=== PATIENT | male | born 1995 | race Caucasian/White ===

== ENCOUNTER 2020-01-13 22:21 | Emergency (ER) | payer OTHER ==
[~2020-01-13] VITALS: Ht 185.4 cm; Wt 77.2 kg
[2020-01-13 22:25] VITALS: BP 131/71
--- NOTE | 2020-01-13 22:56 | PHYS DOC ---
General Adult EDM: Chief Complaint: WRIST PAIN HPI: HPI: Patient is a 24-year-old male who presented to ER today for evaluation of left wrist pain. Patient said about 4 days ago he was running and tripped fell down the sidewalk, hit his left wrist on ledge of the sidewalk. Patient was doing okay then, however today when he was using his left hand to lift something at work, aggravate the pain in his left wrist. Patient denied any other injury, no previous injury to his left wrist. Review of Systems: Review of Systems: Constitutional: Denies fever or chills Eyes: Denies change in visual acuity HENT: Denies nasal congestion or sore throat Respiratory: Denies cough or shortness of breath Cardiovascular: Denies chest pain or edema GI: Denies abdominal pain, nausea, vomiting, bloody stools or diarrhea : Denies dysuria Musculoskeletal: Denies back pain , positive for pain in left wrist. Integument: Denies rash Neurologic: Denies headache, focal weakness or sensory changes Endocrine: Denies polyuria or polydipsia Lymphatic: Denies swollen glands Psychiatric: Denies depression or anxiety Heart Score: Risk Factors: Risk Factors: DM, Current or recent (<one month) smoker, HTN, HLP, family history of CAD, obesity. Risk Scores: Score 0 - 3: 2.5% MACE over next 6 weeks - Discharge Home Score 4 - 6: 20.3% MACE over next 6 weeks - Admit for Clinical Observation Score 7 - 10: 72.7% MACE over next 6 weeks - Early Invasive Strategies Physical Exam: PE: Constitutional: Well developed, well nourished, no acute distress, non-toxic appearance. [] HENT: Normocephalic, atraumatic, bilateral external ears normal, oropharynx moist, no oral exudates, nose normal. [] Eyes: PERRLA, EOMI, conjunctiva normal, no discharge. [] Neck: Normal range of motion, no tenderness, supple, no stridor. [] Cardiovascular:Heart rate regular rhythm, no murmur [] Lungs & Thorax: Bilateral breath sounds clear to auscultation [] Abdomen: Bowel sounds normal, soft, no tenderness, no masses, no pulsatile masses. [] Skin: Warm, dry, no erythema, no rash. [] Back: No tenderness, no CVA tenderness. [] Extremities: No tenderness, no cyanosis, no clubbing, ROM intact, no edema. There is no swelling or deformity of left wrist, there is tenderness with range of motion of left wrist, there is snuffbox tenderness. Neurologic: Alert and oriented X 3, normal motor function, normal sensory function, no focal deficits noted. [] Psychologic: Affect normal, judgement normal, mood normal. [] EKG: EKG: [] Radiology/Procedures: Radiology/Procedures: [][address] [address] IMAGING REPORT Signed PATIENT: DANIELE AU ACCOUNT: [id number] : 1995 LOCATION: ER AGE: 24 SEX: M EXAM STATUS: REG ER ORD. PHYSICIAN: OKSANA KEY DO REASON: FELL 3 DAYS AGO, LEFT SIDE WRIST PAIN PROCEDURE: WRIST 3V LEFT 3 view left wrist HISTORY: Fell 3 days ago AP lateral oblique views The visualized osseous structures appear normal. IMPRESSION: No acute findings. Electronically signed by: Georgie Walsh III, MD (01/13/2020 11:09 PM) [id number] DICTATED AND SIGNED BY: GEORGIE WALSH III, MD DATE: 01/13/202308 CC: PCP,UNKNOWN; OKSANA KEY DO ~ Course & Med Decision Making: Course & Med Decision Making Pertinent Labs and Imaging studies reviewed. (See chart for details) Patient is a 24-year-old man who was evaluated in the ED due to left wrist injury, x-ray did not show any acute fracture or dislocation. Patient had a Velcro wrist splint applied to his left wrist, he will be discharged home. Patient will need to follow-up with family doctor in 10 days to have left wrist re-x-rayed. Patient is amenable to plan of care Ling Disclaimer: Ling Disclaimer: This electronic medical record was generated, in whole or in part, using a voice recognition dictation system. Departure Departure: Impression: Primary Impression: Sprain of left wrist Disposition: 01 HOME/RESIDENCE PRIOR TO ADM Condition: STABLE Referrals: PCP,UNKNOWN (PCP) follow up with your doctor in 10 days to have your left wrist rexray. Patient Instructions: Wrist Sprain with [facility] OKSANA KEY DO January 13, 2020 22:56
--- NOTE | 2020-01-13 23:12 | RAD ---
3 view left wrist HISTORY: Fell 3 days ago AP lateral oblique views The visualized osseous structures appear normal. IMPRESSION: No acute findings. Electronically signed by: Graeme Gutierres III, MD (01/13/2020 11:09 PM) [id number]
== END 2020-01-13 23:30 | disposition home or self-care (01) ==
LOC: ER 22:21
DX: S63.502A Unspecified sprain of left wrist, initial encounter (principal); W01.0XXA Fall on same level from slipping, tripping and stumbling without subsequent striking against object, initial encounter; Y93.02 Activity, running; Y92.89 Other specified places as the place of occurrence of the external cause; Y99.8 Other external cause status
CPT/HCPCS: 29125; 73110; 99283

== ENCOUNTER 2020-11-02 21:05 | Emergency (ER) | payer OTHER ==
[~2020-11-02] VITALS: Ht 185.4 cm; Wt 82.3 kg
--- NOTE | 2020-11-02 21:08 | PHYS DOC ---
Past History Past Medical History: No Pertinent History Past Surgical History: No Surgical History Alcohol Use: None General Adult HPI: HPI: " I had a hard landing.. my parachute did not open all the way on last jump 10/19.. since then I ve been hurting..."..." headache, dizzy.. I bent over at work tonight.. a Patient is a 25 year old male who presents with above hx and complaints hea dache, dizzy, since a hard landing on his last parachute jump on 10/19 at [facility] [employer]. Patient states his shoe only partially opened. Patient was one of the first to hit the ground on thirty man jump. Fell forward heart and then backwards striking his head. No loss of consciousness. Patient had continue neck and headache after hard landing. Patient normally healthy. Up-to-date with vaccinations. Recent transfer from [facility]. Did have a 2-week isolation for protocol. Patient works in the [employer]. Patient normally follows at [facility]. Review of Systems: Review of Systems: Constitutional: Denies fever or chills Eyes: Denies change in visual acuity HENT: Denies nasal congestion or sore throat. Complains of neck pain Respiratory: Denies cough or shortness of breath Cardiovascular: Denies chest pain or edema GI: Denies abdominal pain, nausea, vomiting, bloody stools or diarrhea : Denies dysuria Musculoskeletal: Denies back pain or joint pain Integument: Denies rash Neurologic: Complains of headache, focal weakness. Complains of decreased hearing right ear . Dizzy when he bends over. Endocrine: Denies polyuria or polydipsia Lymphatic: Denies swollen glands Psychiatric: Denies depression or anxiety Family History: Family History: Noncontributory Current Medications: Current Meds: See nursing for home meds Allergies: Allergies: Allergies Coded Allergies Type Severity Reaction Last Updated Verified No Known Drug Allergies 01/13/20 No Physical Exam: PE: Constitutional: Well developed, well nourished, no acute distress, non-toxic appearance. [] HENT: Normocephalic, atraumatic, bilateral external ears normal, oropharynx moist, no oral exudates, nose normal. [] Eyes: PERRLA, EOMI, conjunctiva normal, no discharge. [] Neck: Normal range of motion, no tenderness, supple, no stridor. [] Cardiovascular: Bradycardia heart rate regular rhythm, no murmur [] Lungs & Thorax: Bilateral breath sounds clear to auscultation [] Abdomen: Bowel sounds normal, soft, no tenderness, no masses, no pulsatile masses. [] Skin: Warm, dry, no erythema, no rash. [] Back: No tenderness, no CVA tenderness. [] Extremities: No tenderness, no cyanosis, no clubbing, ROM intact, no edema. [] Neurologic: Alert and oriented X 3, normal motor function, normal sensory function, no focal deficits noted. [] Air conduction more than bone conduction however some lateralization to the left. Has decreased air conduction on right with a 128 tuning fork. DTRs +2 patella and brachial. Ambulatory without problems. No drift. Foam Fabricator equal. Right-hand dominant Psychologic: Affect anxious, judgement normal, mood normal. [] EKG: EKG: My interpretation EKG shows a sinus rhythm at 62 bpm. No acute morphology [] Radiology/Procedures: Radiology/Procedures: [address] [address] IMAGING REPORT Signed PATIENT: DANIELE AU ACCOUNT: [id number] : 1995 LOCATION: ER AGE: 25 SEX: M EXAM STATUS: REG ER ORD. PHYSICIAN: MICAH KAYE MD REASON: dyspnea PROCEDURE: PORTABLE CHEST 1V Exam: Chest one view INDICATION: Dyspnea TECHNIQUE: Frontal view of the chest Comparisons: None FINDINGS: The cardiomediastinal silhouette and pulmonary vessels are within normal limits. The lung and pleural spaces are clear. IMPRESSION: No acute cardiopulmonary process. Electronically signed by: Karol Edwards MD (11/02/2020 9:47 PM) [facility] DICTATED AND SIGNED BY: KAROL EDWARDS MD DATE: 11/02/202145 CC: MICAH KAYE MD; PCP,UNKNOWN ~MTH0 [address] [place] [address] IMAGING REPORT Signed PATIENT: DANIELE AU ACCOUNT: [id number] : 1995 LOCATION: ER AGE: 25 SEX: M EXAM STATUS: REG ER ORD. PHYSICIAN: MICAH KAYE MD REASON: dizzy,. intractable headache PROCEDURE: CT HEAD WO CONTRAST Exam: CT head INDICATION: Dizzy TECHNIQUE: Sequential axial images through the head were obtained without the administration of IV contrast. Comparisons: None FINDINGS: No focal parenchymal lesion or hemorrhage is identified. There is no midline shift or sulcal effacement. No acute vascular territory infarction is identified. Franklin-white distinction is preserved. The ventricular system is within normal limits without compression hydrocephalus. The basal cisterns are well maintained. The visualized portions of the paranasal sinuses and mastoid air cells are well- pneumatized. No acute fractures. IMPRESSION: No acute intracranial abnormality. Exposure: One or more of the following in the visualized dose reduction techniques were utilized for this examination: 1. Automated exposure control 2. Adjustment of the MA and/or KV according to patient size Use of iterative of reconstructive technique Electronically signed by: Karol Edwards MD (11/02/2020 9:30 PM) [facility] DICTATED AND SIGNED BY: KAROL EDWARDS MD DATE: 11/02/202126 CC: MICAH KAYE MD; PCP,UNKNOWN ~MTH0 0 [][place] [address] IMAGING REPORT Signed PATIENT: DANIELE AU ACCOUNT: [id number] : 1995 LOCATION: ER AGE: 25 SEX: M EXAM STATUS: REG ER ORD. PHYSICIAN: MICAH KAYE MD REASON: Hard landing, after parachute did not open fully, neck pain PROCEDURE: CT CERVICAL SPINE WO CONTRAST Exam: CT cervical spine without contrast INDICATION: Trauma, neck pain TECHNIQUE: Sequential axial images through the cervical spine obtained without IV contrast. Sagittal and coronal reformatted images were reconstructed from the axial data and reviewed. Comparisons: None FINDINGS: Vertebral body heights are well-maintained. There is straightening of the cervical spine which may be positional. Fracture to the cervical spine is not identified. No significant spondylotic change in the cervical spine. Visualized paraspinal soft tissues are unremarkable. IMPRESSION: Straightening of cervical spine which may positional. No acute fracture identified in the cervical spine. Exposure: One or more of the following in the visualized dose reduction techniques were utilized for this examination: 1. Automated exposure control 2. Adjustment of the MA and/or KV according to patient size 3. Use of iterative of reconstructive technique Electronically signed by: Karol Edwards MD (11/02/2020 9:36 PM) [facility] DICTATED AND SIGNED BY: KAROL EDWARDS MD DATE: 11/02/202132 CC: MICAH KAYE MD; PCP,UNKNOWN ~MTH0 0 Heart Score: Risk Factors: Risk Factors: DM, Current or recent (<one month) smoker, HTN, HLP, family history of CAD, obesity. Risk Scores: Score 0 - 3: 2.5% MACE over next 6 weeks - Discharge Home Score 4 - 6: 20.3% MACE over next 6 weeks - Admit for Clinical Observation Score 7 - 10: 72.7% MACE over next 6 weeks - Early Invasive Strategies Course & Med Decision Making: Course & Med Decision Making Pertinent Labs and Imaging studies reviewed. (See chart for details) Trial of meclizine 25 mg up to 4 times a day for dizziness. Follow-up with primary care. Reviewed ED work-up. Consider follow-up with neurology if symptoms persist. Return if any concerns. Impression: 1. Head injury 2. Concussion-post sequela syndrome [] Dragon Disclaimer: Dragon Disclaimer: This electronic medical record was generated, in whole or in part, using a voice recognition dictation system. Departure Departure: Referrals: PCP,UNKNOWN (PCP) Scripts Meclizine Hcl (MECLIZINE HCL) 25 Mg Tablet 25 MG PO QIDPRN PRN for dizzy, #30 TAB Prov: MICAH KAYE MD 11/02/20 Ling Disclaimer This chart was dictated in whole or in part using Voice Recognition software in a busy, high-work load, and often noisy Emergency Department environment. It may contain unintended and wholly unrecognized errors or omissions. MICAH KAYE MD Nov 02, 2020 21:08
[2020-11-02 21:14] VITALS: BP 144/92
--- NOTE | 2020-11-02 21:32 | RAD ---
Exam: CT head INDICATION: Dizzy TECHNIQUE: Sequential axial images through the head were obtained without the administration of IV co ntrast. Comparisons: None FINDINGS: No focal parenchymal lesion or hemorrhage is identified. There is no midline shift or sulcal effaceme nt. No acute vascular territory infarction is identified. Franklin-white distinction is preserved. The ventricular system is within normal limits without compression hydrocephalus. The basal cisterns are well maintained. The visualized portions of the paranasal sinuses and mastoid air cells are well-pneumatized. No acute fractures. IMPRESSION: No acute intracranial abnormality. Exposure: One or more of the following in the visualized dose reduction techniques were utilized for this examination: 1. Automated exposure control 2. Adjustment of the MA and/or KV according to patient size Use of iterative of reconstructive technique Electronically signed by: Karol Mckeon MD (11/02/2020 9:30 PM) [facility]
--- NOTE | 2020-11-02 21:38 | RAD ---
Exam: CT cervical spine without contrast INDICATION: Trauma, neck pain TECHNIQUE: Sequential axial images through the cervical spine obtained without IV contrast. Sagittal and coronal reformatted images were reconstructed from the axial data and reviewed. Comparisons: None FINDINGS: Vertebral body heights are well-maintained. There is straightening of the cervical spine which may be positional. Fracture to the cervical spine is not identified. No significant spondylotic change in the cervical spine. Visualized paraspinal soft tissues are unremarkable. IMPRESSION: Straightening of cervical spine which may positional. No acute fracture identified in the cervical sp ine. Exposure: One or more of the following in the visualized dose reduction techniques were utilized for this examination: 1. Automated exposure control 2. Adjustment of the MA and/or KV according to patient size 3. Use of iterative of reconstructive technique Electronically signed by: Karol Mckeon MD (11/02/2020 9:36 PM) [facility]
[2020-11-02 21:43] LABS: BASO # 0.1 x10^3/uL (0.0-0.2); BASO % 1 % (0-3); EOS # 0.3 x10^3/uL (0.0-0.7); EOS % 4 % (0-3); HEMATOCRIT 42.3 % (39.0-53.0); HEMOGLOBIN 14.8 g/dL (13.0-17.5); LYMPH # 2.7 x10^3/uL (1.0-4.8); LYMPH % 39 % (24-48); MEAN CORPUSCULAR HEMOGLOBIN 33 pg (25-35); MEAN CORPUSCULAR HGB CONC 35 g/dL (31-37); MEAN CORPUSCULAR VOLUME 95 fL (79-100); MONO # 0.6 x10^3/uL (0.0-1.1); MONO % 9 % (0-9); NEUT # 3.2 x10^3uL (1.8-7.7); NEUT % 47 % (31-73); PLATELET COUNT 171 x10^3/uL (140-400); RED BLOOD COUNT 4.48 x10^6/uL (4.30-5.70); RED CELL DISTRIBUTION WIDTH 12.1 % (11.5-14.5); WHITE BLOOD COUNT 6.8 x10^3/uL (4.0-11.0)
--- NOTE | 2020-11-02 21:49 | RAD ---
Exam: Chest one view INDICATION: Dyspnea TECHNIQUE: Frontal view of the chest Comparisons: None FINDINGS: The cardiomediastinal silhouette and pulmonary vessels are within normal limits. The lung and pleural spaces are clear. IMPRESSION: No acute cardiopulmonary process. Electronically signed by: Karol Mckeon MD (11/02/2020 9:47 PM) [facility]
[2020-11-02 21:52] LABS: ANION GAP 9 (6-14); BLOOD UREA NITROGEN 22 mg/dL (8-26); CALCIUM 9.5 mg/dL (8.5-10.1); CARBON DIOXIDE 30 mmol/L (21-32); CHLORIDE 103 mmol/L (98-107); CREATININE 1.2 mg/dL (0.7-1.3); GLUCOSE 102 mg/dL (70-99); POTASSIUM 4.1 mmol/L (3.5-5.1); SODIUM 142 mmol/L (136-145)
[2020-11-02 22:05] LABS: MAGNESIUM 1.9 mg/dL (1.8-2.4)
[2020-11-02 22:14] LABS: BARBITURATES NEG (NEG); BENZODIAZEPINES NEG (NEG); CANNABINOIDS NEG (NEG); COCAINE NEG (NEG); METHADONE NEG (NEG); OPIATES NEG (NEG); PHENCYCLIDINE NEG (NEG)
[2020-11-02 22:20] LABS: BACTERIA,URINE 0 /HPF (0-FEW); BILIRUBIN,URINE NEG (NEG); CLARITY,URINE HAZY; COLOR,URINE YELLOW; GLUCOSE,URINE NEG (NEG); NITRITE,URINE NEG (NEG); RBC,URINE 0 /HPF (0-2); UROBILINOGEN,URINE 0.2 mg/dL (0.2 mg/dL); WBC,URINE 0 /HPF (0-4)
[2020-11-02 22:21] LABS: AMORPHOUS SEDIMENT,UR PRESENT /HPF
[2020-11-02 22:28] LABS: C REACTIVE PROTEIN < 0.5 mg/L (0-3.3)
[2020-11-02 22:29] LABS: AMPHETAMINE/METHAMPHETAMINE NEG (NEG)
[2020-11-02] MEDS ORDERED: MECL-75 PO (22:57)
[2020-11-02] MEDS ORDERED: MECLIZINE 12.5 MG TABLET. ONE (22:58)
[2020-11-02] MEDS ORDERED: MECLIZINE 12.5 MG TABLET. PO ONE (23:00)
--- NOTE | 2020-11-03 06:31 | EKG ---
[address] [address] Test Date: 2020-11-02 Test Time: 21:33:36 Pat Name: DANIELE AU Department: Room: Gender: M Fund Controller: : 1995 Requested By: MICAH KAYE Order Number: [id number] Reading MD: Measurements Intervals [place] Rate: 62 P: 42 NH: 156 QRS: 64 QRSD: 94 T: 31 QT: 382 QTc: 390 Interpretive Statements SINUS RHYTHM NORMAL ECG RI6.02 No previous ECG available for comparison
== END 2020-11-02 23:00 | disposition home or self-care (01) ==
LOC: ER 21:05
DX: S06.0X1A Concussion with loss of consciousness of 30 minutes or less, initial encounter (principal); R42 Dizziness and giddiness; M54.2 Cervicalgia; W18.39XA Other fall on same level, initial encounter; Y93.89 Activity, other specified; Y92.89 Other specified places as the place of occurrence of the external cause; Y99.8 Other external cause status
CPT/HCPCS: 36415; 70450; 71045; 72125; 80048; 80307; 81001; 82140; 82550; 83735; 83880; 84484; 85025; 85610; 85730; 86140; 93005; 99285

== ENCOUNTER 2021-04-13 16:30 | Emergency (ER) | payer OTHER ==
[~2021-04-13] VITALS: Ht 185.4 cm; Wt 82.3 kg
[~2021-04-13 16:30] MED LIST: MECL-75 PO
[2021-04-13] MEDS ORDERED: POLY10DR3 EACHEYE (17:02)
--- NOTE | 2021-04-13 17:03 | PHYS DOC ---
Past History Past Medical History: No Pertinent History Past Surgical History: No Surgical History Alcohol Use: None General Adult EDM: Chief Complaint: EYE PROBLEMS HPI: HPI: Patient is a 25-year-old male who presents with right eye pain, redness, drainage since last night. Patient states "I woke up this morning and my eye was not matted together but I had some light green drainage from my eye". Denies itching. Eye is red and bloodshot. "I feel like it is actually gotten better since this morning. Patient has history of TBI Review of Systems: Review of Systems: Constitutional: Denies fever or chills Eyes: Reports green drainage, redness and mild pain to right eye HENT: Denies nasal congestion or sore throat Respiratory: Denies cough or shortness of breath Cardiovascular: Denies chest pain or edema GI: Denies abdominal pain, nausea, vomiting, bloody stools or diarrhea : Denies dysuria Musculoskeletal: Denies back pain or joint pain Integument: Denies rash Neurologic: Denies headache, focal weakness or sensory changes Endocrine: Denies polyuria or polydipsia Lymphatic: Denies swollen glands Psychiatric: Denies depression or anxiety Allergies: Allergies: Allergies Coded Allergies Type Severity Reaction Last Updated Verified No Known Drug Allergies 01/13/20 No Physical Exam: PE: Constitutional: Well developed, well nourished, no acute distress, non-toxic appearance. [] HENT: Normocephalic, atraumatic, bilateral external ears normal, oropharynx moist, no oral exudates, nose normal. [] Eyes: PERRLA, EOMI, redness and irritation to conjunctiva Neck: Normal range of motion, no tenderness, supple, no stridor. [] Cardiovascular:Heart rate regular rhythm, no murmur [] Lungs & Thorax: Bilateral breath sounds clear to auscultation [] Abdomen: Bowel sounds normal, soft, no tenderness, no masses, no pulsatile masses. [] Skin: Warm, dry, no erythema, no rash. [] Back: No tenderness, no CVA tenderness. [] Extremities: No tenderness, no cyanosis, no clubbing, ROM intact, no edema. [] Neurologic: Alert and oriented X 3, normal motor function, normal sensory function, no focal deficits noted. [] Psychologic: Affect normal, judgement normal, mood normal. [] EKG: EKG: [] Radiology/Procedures: Radiology/Procedures: [] Heart Score: C/O Chest Pain: No Risk Factors: Risk Factors: DM, Current or recent (<one month) smoker, HTN, HLP, family history of CAD, obesity. Risk Scores: Score 0 - 3: 2.5% MACE over next 6 weeks - Discharge Home Score 4 - 6: 20.3% MACE over next 6 weeks - Admit for Clinical Observation Score 7 - 10: 72.7% MACE over next 6 weeks - Early Invasive Strategies Course & Med Decision Making: Course & Med Decision Making Pertinent Labs and Imaging studies reviewed. (See chart for details) [] 25-year-old male presents with right eye redness and irritation to the conjunctiva. Patient reports some discomfort. Patient states that this morning he had some green drainage coming from his eye. Patient was likely has bacterial conjunctivitis. Patient sent home with antibiotic eyedrops to treat. Discussed importance of hand hygiene and avoiding touching his face to prevent spreading. Patient to follow-up with PCP if symptoms not resolved. Patient can return to the emergency room with worsening symptoms. Dragon Disclaimer: Dragon Disclaimer: This electronic medical record was generated, in whole or in part, using a voice recognition dictation system. Departure Departure: Impression: Primary Impression: Bacterial conjunctivitis of right eye Disposition: 01 HOME / SELF CARE / HOMELESS Condition: STABLE Referrals: PCP,UNKNOWN (PCP) Patient Instructions: Bacterial Conjunctivitis, [id number] Additional Instructions: You were seen in the emergency room for irritation, drainage, redness of your right eye. We treating you with antibiotic eyedrops to treat bacterial conjunctivitis. These make sure that you use the eyedrops as directed. Try to avoid touching your eyes or your face to avoid spreading. Follow-up with your PCP if symptoms do not improve. Return to the emergency room with worsening symptoms or concerns. EMERGENCY DEPARTMENT GENERAL DISCHARGE INSTRUCTIONS Thank you for coming to [facility] (ED) today and trusting us with you care. We trust that you had a positivie experience in our Emergency Department. If you wish to speak to the department management, you may call the director at [phone]. YOUR FOLLOW UP INSTRUCTIONS ARE FOLLOWS: 1. Do you have a private Doctor? If you do not have a private doctor, please ask for a resource list of physicians or clinics that may be able to assist you with follow up care. 2. The Emergency Physician has interpreted your x-rays. The X-Ray specialist will also review them. If there is a change in the findings, you will be notified in 48 hours when at all possible. 3. A lab test or culture has been done, your results will be reviewed and you will be notified if you need a change in treatment. ADDITIONAL INSTRUCTIONS AND INFORMATION: 1. Your care today has been supervised by a physician who is specially trained in emergency care. Many problems require more than one evaluation for a complete diagnosis and treatment. We recommend that you schedule your follow up appointment as recommended to ensure complete treatment of you illness or injury. If you are unable to obtain follow up care and continue to have a problem, or if your condition worsens, we recommend that you return to the ED. 2. We are not able to safely determine your condition over the phone nor are we able to give sound medical advice over the phone. For these safety reasons, if you call for medical advice we will ask you to come to the ED for further evaluation. 3. If you have any questions regarding these discharge instructions please call the ED at [phone]. SAFETY INFORMATION: In the interest of safety, wellness, and injury prevention; we encourage you to wear your sealbelt, if you smoke; quite smoking, and we encourage family to use a protective helmet for bicycling and other sporting events that present an increased risk for head injury. IF YOUR SYMPTOMS WORSEN OR NEW SYMPTOMS DEVELOP, OR YOU HAVE CONCERNS ABOUT YOUR CONDITION; OR IF YOUR CONDITION WORSENS WHILE YOU ARE WAITING FOR YOUR FOLLOW UP APPOINTMENT; EITHER CONTACT YOUR PRIMARY CARE DOCTOR, THE PHYSICIAN WHOSE NAME AND NUMBER YOU WERE GIVEN, OR RETURN TO THE ED IMMEDIATELY. Scripts Polymyxin B Sulf/Trimethoprim (POLYMYXIN B-TMP EYE DROPS) 10 Ml Drops 2 DROP EACHEYE QID for BACTERIAL CONJUNCTIVITS for 7 Days, #10 ML 0 Refills Prov: SOLOMON CUADRA APRN 04/13/21 SOLOMON CUADRA APRN Apr 13, 2021 17:03
[2021-04-13] MEDS ORDERED: POLYMYXIN/TRIMETHOPRIM OPHTH SOLUTION 10ML BOTTLE. ONE (17:06)
[2021-04-13] MEDS ORDERED: POLYMYXIN/TRIMETHOPRIM OPHTH SOLUTION 10ML BOTTLE. OD ONE (17:15)
[2021-04-13 17:16] VITALS: BP 122/68
== END 2021-04-13 17:17 | disposition home or self-care (01) ==
LOC: ER 16:30
DX: H10.89 Other conjunctivitis (principal)
CPT/HCPCS: 99283

== ENCOUNTER 2021-05-31 11:04 | Emergency (ER) | payer OTHER ==
[~2021-05-31] VITALS: Ht 182.9 cm; Wt 81.8 kg
[~2021-05-31 11:04] MED LIST changes: +POLY10DR3 EACHEYE
[2021-05-31 11:05] VITALS: BP 141/78
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
== END 2021-05-31 11:44 | disposition home or self-care (01) ==
LOC: ER 11:04
DX: S09.90XA Unspecified injury of head, initial encounter (principal); Z87.820 Personal history of traumatic brain injury; W22.8XXA Striking against or struck by other objects, initial encounter; Y93.89 Activity, other specified; Y92.89 Other specified places as the place of occurrence of the external cause; Y99.8 Other external cause status
CPT/HCPCS: 99281

== ENCOUNTER 2021-08-12 03:46 | Emergency (ER) | payer OTHER ==
[~2021-08-12] VITALS: Ht 185.4 cm; Wt 82.0 kg
--- NOTE | 2021-08-12 04:03 | PHYS DOC ---
Past History Past Medical History: No Pertinent History Additional Past Medical Histor: TBI (MICAH KAYE MD) Past Surgical History: Other Additional Past Surgical Histo: WISDOM TEETH (MICAH KAYE MD) Alcohol Use: Occasionally (MICAH KAYE MD) General Adult HPI: HPI: ".. I fell.. " " I got up to go to the bathroom.. and tripped.. fell into the door... and onto my Rt shoulder.. 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 Patient does have an abrasion to right shoulder and appears to have some AC separation. Distal sensation in hand is decreased as compared to left hand.. Capillary refill is equal to left hand.. Patient is right-hand dominant. No other injury in the fall. (MICAH KAYE MD) Review of Systems: Review of Systems: Constitutional: Denies fever or chills Eyes: Denies change in visual acuity HENT: Denies nasal congestion or sore throat Respiratory: Denies cough or shortness of breath Cardiovascular: Denies chest pain or edema GI: Denies abdominal pain, nausea, vomiting, bloody stools or diarrhea : Denies dysuria Musculoskeletal: Complains of right shoulder pain Integument: Complains of right shoulder abrasion Neurologic: Denies headache, focal weakness or sensory changes Endocrine: Denies polyuria or polydipsia Lymphatic: Denies swollen glands Psychiatric: Denies depression or anxiety (MICAH KAYE MD) Family History: Family History: Noncontributory to presentation (MICAH KAYE MD) Current Medications: Current Meds: See nursing for home meds (MICAH KAYE MD) Allergies: Allergies: Allergies Coded Allergies Type Severity Reaction Last Updated Verified No Known Drug Allergies 01/13/20 No (MICAH KAYE MD) Physical Exam: PE: Constitutional: Well developed, well nourished, moderate acute distress, non- toxic appearance. [] HENT: Normocephalic, atraumatic, bilateral external ears normal, oropharynx mo ist, no oral exudates, nose normal. [] Eyes: PERRLA, EOMI, conjunctiva normal, no discharge. [] Neck: Normal range of motion, no tenderness, supple, no stridor. [] Cardiovascular:Heart rate regular rhythm, no murmur [] Lungs & Thorax: Bilateral breath sounds clear to auscultation [] Abdomen: Bowel sounds normal, soft, no tenderness, no masses, no pulsatile masses. [] Skin: Abrasion to right shoulder. Tattoos Back: No tenderness, no CVA tenderness. [] Extremities: Right shoulder tenderness, no cyanosis, no clubbing, limited ROM in right shoulder, mild edema. rt. shoulder. [] Neurologic: Alert and oriented X 3, limited motor right shoulder function and decreased sensory function in right hand, no focal deficits noted. Decreased distal sensation in right hand. Psychologic: Affect normal, judgement normal, mood normal. [] (MICAH KAYE MD) EKG: EKG: [] (MICAH KAYE MD) Radiology/Procedures: Radiology/Procedures: [][place] [address] IMAGING REPORT Signed PATIENT: DANIELE AU ACCOUNT: [id number] : 1995 LOCATION: ER AGE: 26 SEX: M EXAM STATUS: REG ER ORD. PHYSICIAN: MICAH KAYE MD REASON: fall PROCEDURE: SHOULDER 2+V RIGHT INDICATION: Reason: fall / Spl. Instructions: / History: COMPARISON: None. IMPRESSION: Right shoulder: 4 views obtained. There is a suspected joint effusion. A definite acute fracture line is not seen but there is some subtle angulation at the proximal aspect of the right humerus. If there is high clinical concern for fracture may be helpful to obtain CT or MRI to ensure that this is not secondary to occult fracture. There is no comparison available for review to assess whether this is the patient's baseline appearance. Right humerus: 2 views obtained. A definite acute fracture line is not seen. Electronically signed by: Raji Skelton MD (08/12/2021 6:17 AM) DESKTOP- [id number] DICTATED AND SIGNED BY: RAJI SKELTON MD DATE: 08/12/21610 CC: MICAH KAYE MD; PCP,UNKNOWN ~MTH0 0 (MICAH KAYE MD) Heart Score: C/O Chest Pain: N/A Risk Factors: Risk Factors: DM, Current or recent (<one month) smoker, HTN, HLP, family history of CAD, obesity. Risk Scores: Score 0 - 3: 2.5% MACE over next 6 weeks - Discharge Home Score 4 - 6: 20.3% MACE over next 6 weeks - Admit for Clinical Observation Score 7 - 10: 72.7% MACE over next 6 weeks - Early Invasive Strategies (MICAH KAYE MD) Course & Med Decision Making: Course & Med Decision Making Pertinent Labs and Imaging studies reviewed. (See chart for details) Wear sling. Use ice packs. Take Tylenol ibuprofen for pain. Polysporin to abrasion 4 x day until healed. Follow-up primary care. Follow up with ortho at [place] or call [facility] [phone] Guthrie at [facility] for pending CT results. Impression: 1. Trip and fall 2. Right shoulder abrasion 3. Right shoulder contusion 4. Peripheral Neuropathy in Rt. hand- decreased sensation [] (MICAH KAYE MD) Course & Med Decision Making I reviewed the patient's CT and I do not see any obvious findings. It has been nearly 2 hours since the scan was done and has not been read by radiology. I am not can make the patient wait any longer. We will call him with the results later today. He is stable for discharge at this time. (PARVEEN GUTHRIE DO) Ling Disclaimer: Ling Disclaimer: This electronic medical record was generated, in whole or in part, using a voice recognition dictation system.[address] [address] IMAGING REPORT Signed PATIENT: DANIELE AU ACCOUNT: [id number] : 1995 LOCATION: ER AGE: 26 SEX: M EXAM STATUS: DEP ER ORD. PHYSICIAN: MICAH KAYE MD REASON: fall, recommended CT by radiologist after xray PROCEDURE: CT UPPR EXTREMTY WO CONTRST RT CT study of the right shoulder without contrast Clinical indications: Fall. Right shoulder pain. Possible occult fracture of the proximal right humerus seen on radiographic study. TECHNIQUE: Noncontrast helical CT scanning of the right shoulder was performed. Multiplanar 2-D reconstructions were generated. PQRS compliance Statement One or more of the following individualized dose reduction techniques were utilized for this study: 1. Automated exposure control 2. Adjustment of the mA and/or kV according to patient size 3. Use of iterative reconstruction technique FINDINGS: No acute fracture is evident. Glenohumeral joint is normally aligned. No AC joint separation is seen. No lytic process is evident. No soft tissue mass or hematoma is apparent. IMPRESSION: No acute fracture. Electronically signed by: Dilip Joe MD (08/12/2021 8:34 AM) [id number] DICTATED AND SIGNED BY: DILIP JOE MD DATE: 08/12/21820 CC: PARVEEN GUTHRIE DO; MICAH KAYE MD; PCP,UNKNOWN ~MTH0 0 (MICAH KAYE MD) Departure Departure: Impression: Primary Impression: Right shoulder pain Qualified Codes: M25.511 - Pain in right shoulder Disposition: 01 HOME / SELF CARE / HOMELESS Condition: STABLE Referrals: PCP,UNKNOWN (PCP) Patient Instructions: Shoulder Pain, [id number] MICAH KAYE MD Aug 12, 2021 04:02 PARVEEN GUTHRIE DO Aug 12, 2021 08:20
[2021-08-12] MEDS ORDERED: ACETAMINOPHEN 500 MG TABLET PO ONE (04:15)
[2021-08-12] MEDS ORDERED: BACITRACIN ZINC TOPICAL OINT PACKET. TP ONE (04:15)
[2021-08-12] MEDS ORDERED: IBUPROFEN 400 MG TABLET. PO ONE (04:30)
[2021-08-12] MEDS ORDERED: KETOROLAC 60 MG/2 ML VIAL. IM ONE ×2 (05:50→06:00)
[2021-08-12 05:57] VITALS: BP 117/64
--- NOTE | 2021-08-12 06:19 | RAD ---
INDICATION: Reason: fall / Spl. Instructions: / History: COMPARISON: None. IMPRESSION: Right shoulder: 4 views obtained. There is a suspected joint effusion. A definite acute fracture line is not seen but there is some subtle angulation at the proximal aspect of the right humerus. If ther e is high clinical concern for fracture may be helpful to obtain CT or MRI to ensure that this is not secondary to occult fracture. There is no comparison available for review to assess whether this is the patient's baseline appearance. Right humerus: 2 views obtained. A definite acute fracture line is not seen. Electronically signed by: Moshe Ellis MD (08/12/2021 6:17 AM) [id number]
--- NOTE | 2021-08-12 08:36 | RAD ---
CT study of the right shoulder without contrast Clinical indications: Fall. Right shoulder pain. Possible occult fracture of the proximal right humer us seen on radiographic study. TECHNIQUE: Noncontrast helical CT scanning of the right shoulder was performed. Multiplanar 2-D recon structions were generated. PQRS compliance Statement One or more of the following individualized dose reduction techniques were utilized for this study: 1. Automated exposure control 2. Adjustment of the mA and/or kV according to patient size 3. Use of iterative reconstruction technique FINDINGS: No acute fracture is evident. Glenohumeral joint is normally aligned. No AC joint separatio n is seen. No lytic process is evident. No soft tissue mass or hematoma is apparent. IMPRESSION: No acute fracture. Electronically signed by: Dilip Joe MD (08/12/2021 8:34 AM) [id number]
--- NOTE | 2021-08-12 08:44 | RAD ---
XR CHEST 2V CLINICAL INDICATIONS: Reason: fall /pain. Comparison: November 02, 2020. Findings: No acute lung infiltrate or pleural effusion or pulmonary edema or lung mass or pneumothora x is seen. The heart size, pulmonary vasculature, mediastinum and both riley are unremarkable. The os seous structures appear intact. IMPRESSION: No acute radiographic abnormality is seen. Electronically signed by: Dilip Joe MD (08/12/2021 8:42 AM) [id number]
--- NOTE | 2021-08-12 08:51 | RAD ---
CT OF THE CERVICAL SPINE WITHOUT CONTRAST Clinical indications: Fall and neck pain. TECHNIQUE: Noncontrast helical CT scanning of the cervical spine was performed. Multiplanar 2-D recon structions were generated. PQRS compliance Statement One or more of the following individualized dose reduction techniques were utilized for this study: 1. Automated exposure control 2. Adjustment of the mA and/or kV according to patient size 3. Use of iterative reconstruction technique FINDINGS: No acute fracture or discitis or lytic process is evident. No anterolisthesis is seen. No p erching of facet joints is evident. Spinous processes are intact. No prevertebral soft tissue swellin g is seen. No prominent focal disc protrusion or significant spinal canal stenosis is evident. No raquel g apical infiltrate is seen. IMPRESSION: No acute fracture. Electronically signed by: Dilip Joe MD (08/12/2021 8:49 AM) [id number]
== END 2021-08-12 08:30 | disposition home or self-care (01) ==
LOC: ER 03:46
DX: S40.011A Contusion of right shoulder, initial encounter (principal); G62.9 Polyneuropathy, unspecified; W01.0XXA Fall on same level from slipping, tripping and stumbling without subsequent striking against object, initial encounter; Y93.89 Activity, other specified; Y92.89 Other specified places as the place of occurrence of the external cause; Y99.8 Other external cause status
CPT/HCPCS: 29240; 71046; 72125; 73030; 73060; 73200; 99284; J1885